=== PATIENT | female | born 1935 | race Caucasian/White ===

== ENCOUNTER 2018-07-24 17:01 | Emergency (ER) | payer MEDICARE, OTHER ==
[2018-07-24 19:36] VITALS: BP 176/61
--- NOTE | 2018-07-24 19:52 | UC ---
UC General HPI - HPI Summary HPI Summary: pt presents to the ED for evaluation of her urinary frequency. As I interview the patient with the daughter, she complains of weakness, diarrhea, chest pain, abdominal pain. she feels like she has lost weight over the past 8 days. she also complains of feeling light headed and dizzy. she just moved from [place] to [facility] last week. she also states that she is not eating very much. - History of Current Complaint Chief Complaint: UCGU Stated Complaint: PAINFUL URINATION Hx Obtained From: Patient, Family/Cash Posting Specialist Onset/Duration: Gradual Onset Onset Severity: Moderate Current Severity: Moderate Pain Intensity: 0 Associated Signs & Symptoms: Positive: Chest Pain, Dizziness, Diarrhea, Decreased Oral Intake, Headache, Weakness - Allergy/Home Medications Allergies/Adverse Reactions: Allergies Allergy/AdvReac Type Severity Reaction Status Date / Time clindamycin Allergy See Comment Verified 07/24/18 19:40 doxycycline Allergy See Comment Verified 07/24/18 19:40 Penicillins Allergy See Comment Verified 07/24/18 19:40 Contrast dyes Allergy See Comment Uncoded 07/24/18 19:40 Home Medications: Home Medications Atorvastatin* [Lipitor*] 40 mg PO 1700 07/24/18 [History Confirmed 07/24/18] Cholecalciferol TAB* [Vitamin D TAB*] 5,000 units PO DAILY 07/24/18 [History Confirmed 07/24/18] Estradiol VAGINAL TAB(NF) [Vagifem] 2 mcg VA SEE INSTRUCTIONS 07/24/18 [History Confirmed 07/24/18] HYDROcodone/ACETAMIN 5-325 MG* [Saranac 5-325 TAB*] 1 tab PO Q4H PRN 07/24/18 [ History Confirmed 07/24/18] Isosorbide Mononitrate ER TAB* [Imdur ER TAB*] 30 mg PO DAILY 07/24/18 [History Confirmed 07/24/18] L.acidoph,Paracasei, B.lactis [Probiotic] 1 each PO DAILY 07/24/18 [History Confirmed 07/24/18] LORazepam TAB(*) [Ativan 0.5 MG TAB (*)] 0.5 mg PO TID PRN 07/24/18 [History Confirmed 07/24/18] Lisinopril TAB* [Prinivil TAB*] 10 mg PO DAILY 07/24/18 [History Confirmed 07/24] Medical Marijuana 1 dose PO SEE INSTRUCTIONS 07/24/18 [History Confirmed ] Metoprolol Succinate XL TAB* [Toprol XL TAB*] 25 mg PO DAILY 07/24/18 [History Confirmed 07/24/18] Mirtazapine TAB* [Remeron TAB*] 45 mg PO BEDTIME 07/24/18 [History Confirmed 01/04] Warfarin TAB(*) [Coumadin TAB(*)] 5 mg PO SEE INSTRUCTIONS 07/24/18 [History Confirmed 07/24/18] amLODIPine TAB* [Norvasc 5 mg TAB*] 2.5 mg PO DAILY 07/24/18 [History Confirmed 07/24/18] PMH/Surg Hx/FS Hx/Imm Hx Previously Healthy: Yes - Surgical History Surgical History: Yes Surgery Procedure, Year, and Place: EYELID SURGERY - Social History Alcohol Use: Rare Substance Use Type: Marijuana Substance Use Comment - Amount & Last Used: recreationally/medicinally since 1998 Smoking Status (MU): Former Smoker Review of Systems All Other Systems Reviewed And Are Negative: No Constitutional: Positive: Fatigue Skin: Positive: Negative Eyes: Positive: Blurred Vision ENT: Positive: Negative Respiratory: Positive: Negative Cardiovascular: Positive: Chest Pain Gastrointestinal: Positive: Abdominal Pain, Diarrhea Genitourinary: Positive: Frequency Motor: Positive: Weakness Neurovascular: Positive: Negative Musculoskeletal: Positive: Negative Neurological: Positive: Headache Psychological: Positive: Negative, Anxious Physical Exam Triage Information Reviewed: Yes Appearance: Well-Nourished, Other: - pt appears fatigued Vital Signs: Initial Vital Signs Temp 97.1 F 07/24/18 19:30 Pulse 68 07/24/18 19:30 Resp 16 07/24/18 19:30 BP 176/61 07/24/18 19:30 Pulse Ox 100 07/24/18 19:30 Vital Signs Reviewed: Yes Eyes: Positive: Conjunctiva Clear ENT: Positive: Other - slightly dry mucous membranes Neck: Positive: Supple, Nontender Respiratory Exam: Normal Cardiovascular: Positive: RRR Abdomen Description: Positive: Soft, Other: - mild discomfort to lower abdomen Bowel Sounds: Positive: Present Musculoskeletal: Positive: ROM Intact Neurological: Positive: Alert Psychological Exam: Normal Skin Exam: Normal Course/Dx - Course Course Of Treatment: pt has multiple complaints. she is 82 years old and is having dizziness. she has also had decrease po intake with weight loss. I am concerned she is dehydrated with electrolyte derrangements. she will need further studies. pt sent to ED in [place]. I called the ED and gave them a courtesy call. - Diagnoses Provider Diagnosis: Weakness Discharge - Sign-Out/Discharge Documenting (check all that apply): Patient Departure All imaging exams completed and their final reports reviewed: No Studies - Discharge Plan Condition: Stable Disposition: TRANS HIGHER LVL OF CARE FAC Patient Education Materials: Weakness (ED) Referrals: Collin Hirsch MD [Primary Care Provider] - Additional Instructions: please go immediately to [place] [facility]. - Billing Disposition and Condition Condition: STABLE Disposition: Trans Higher Lvl of Care Fac
== END 2018-07-24 20:05 | disposition short-term general hospital (02) ==
LOC: UCCORT 17:01
DX: R53.1 Weakness (principal); Z88.0 Allergy status to penicillin; Z88.1 Allergy status to other antibiotic agents; Z91.041 Radiographic dye allergy status; Z87.891 Personal history of nicotine dependence
CPT/HCPCS: 99202; G0463

== ENCOUNTER 2018-08-26 11:44 | Emergency (ER) | payer MEDICARE, OTHER ==
[2018-08-26 13:39] VITALS: BP 154/50
--- NOTE | 2018-08-26 14:04 | UC ---
Eye Complaint HPI - HPI Summary HPI Summary: COMPLAINS OF BLURRY VISION AND A GRITTY SENSATION IN THE UPPER PART OF BOTH HER EYES FOR ABOUT A WEEK. SAW HER NURSE PRACTITIONER 2 OR 3 DAYS AGO AND WAS GIVEN ERYTHROMYCIN OINTMENT TO USE ONCE DAILY. STATES SHE HAS HAD NO IMPROVEMENT IN HER SYMPTOMS. DENIES ANY DRAINAGE FROM HER EYES. NO HEADACHE, FEVER, NAUSEA. DOES NOT WEAR CONTACT LENSES. REPORTS A HISTORY OF RETINAL SURGERIES IN [place], LAST PROCEDURE 2 YEARS AGO. - History of Current Complaint Chief Complaint: UCEye Stated Complaint: B/L EYE COMPLAINT Time Seen by Provider: 08/26/18 13:29 Hx Obtained From: Patient Onset/Duration: Gradual Onset, Lasting Days, Still Present Timing: Constant Severity Initially: Moderate Severity Currently: Moderate Pain Intensity: 0 Pain Scale Used: 0-10 Numeric Character: Foreign Body Sensation - GRITTY FEELING Aggravating Factor(s): Blinking Alleviating Factor(s): Nothing Associated Signs And Symptoms: Positive: Vision Impairment Bilateral. Negative : Drainage (Clear) - Allergies/Home Medications Allergies/Adverse Reactions: Allergies Allergy/AdvReac Type Severity Reaction Status Date / Time clindamycin Allergy See Comment Verified 08/26/18 13:30 doxycycline Allergy See Comment Verified 08/26/18 13:30 Penicillins Allergy See Comment Verified 08/26/18 13:30 Contrast dyes Allergy See Comment Uncoded 08/26/18 13:30 Home Medications: Home Medications Erythromycin OPTH OINT* [Erythromycin 0.5% OPTH OINT*] 1 applic BOTH EYES TID [History Confirmed 08/26/18] Escitalopram (NF) [Lexapro 5 mg (NF)] 5 mg PO DAILY 08/26/18 [History Confirmed 08/26/18] PMH/Surg Hx/FS Hx/Imm Hx - Additional Past Medical History Additional PMH: FACTOR 5 LEIDEN Cardiovascular History: Hypertension - Surgical History Surgical History: Yes Surgery Procedure, Year, and Place: EYELID SURGERY - Family History Known Family History: Positive: Non-Contributory - Social History Alcohol Use: Rare Substance Use Type: Marijuana Substance Use Comment - Amount & Last Used: recreationally/medicinally since 1998 Smoking Status (MU): Former Smoker Review of Systems All Other Systems Reviewed And Are Negative: Yes Constitutional: Positive: Negative Eyes: Positive: Blurred Vision Respiratory: Positive: Negative Cardiovascular: Positive: Negative Gastrointestinal: Positive: Negative Neurological: Positive: Negative Physical Exam Triage Information Reviewed: Yes Appearance: Well-Appearing, No Pain Distress, Well-Nourished Vital Signs: Initial Vital Signs Temp 97.7 F 08/26/18 13:34 Pulse 53 08/26/18 13:34 Resp 18 08/26/18 13:34 BP 154/50 08/26/18 13:34 Pulse Ox 100 08/26/18 13:34 Vital Signs Reviewed: Yes Eyes: Positive: Conjunctiva Inflamed - SLIGHT INJECTION BILATERAL BULBAR CONJUNCTIVA UPPER EYE, Other: - PERRL, EOMI. NO FOREIGN BODY OR EYE LESION. Negative: Discharge ENT: Positive: Hearing grossly normal Neck: Positive: Supple Respiratory: Positive: No respiratory distress, No accessory muscle use Cardiovascular: Positive: Pulses Normal Abdomen Description: Positive: Soft Musculoskeletal: Positive: No Edema Neurological: Positive: Alert Psychological: Positive: Age Appropriate Behavior Skin: Negative: Rashes Eye Complaint Course/Dx - Differential Dx/Diagnosis Provider Diagnosis: Pain of both eyes Discharge - Sign-Out/Discharge Documenting (check all that apply): Patient Departure All imaging exams completed and their final reports reviewed: No Studies - Discharge Plan Condition: Stable Disposition: HOME Patient Education Materials: Blurred Vision (ED), Eye Pain (ED) Referrals: Taylor Mariee MD [Medical Doctor] - (APPT AT 3:30PM TODAY) Additional Instructions: GIVEN YOUR COMPLAINTS OF BLURRY VISION AND A GRITTY FEELING IN BOTH YOUR EYES THAT IS NOT IMPROVING WITH ERYTHROMYCIN OINTMENT WILL SEND TO OPHTHALMOLOGY FOR FURTHER EVALUATION. YOU HAVE AN APPOINTMENT WITH DR. MARIEE AT 4 PM. PLEASE SHOW UP AT 3:30 PM TO COMPLETE PAPERWORK. - Billing Disposition and Condition Condition: STABLE Disposition: Home
== END 2018-08-26 14:16 | disposition home or self-care (01) ==
LOC: UCCORT 11:44
DX: Z88.0 Allergy status to penicillin (principal); H57.13 Ocular pain, bilateral; Z88.1 Allergy status to other antibiotic agents; Z91.041 Radiographic dye allergy status; I10 Essential (primary) hypertension; Z87.891 Personal history of nicotine dependence
CPT/HCPCS: 99212; G0463

== ENCOUNTER 2019-03-07 12:08 | Emergency (ER) | payer MEDICARE, OTHER ==
--- OUTSIDE RECORDS SUMMARY | 2019-03-07 12:25 | XMS REPORT | Continuity of Care Document ---
:1935 External Reference #:[id number] Author Name CHRISTIANO Newsome Address [address] [place] [address] Care Team Providers Name Role Phone Ayala Rodriguez MD Primary Care Physician Unavailable Payers Date Identification Numbers Payment Provider Subscriber Effective: Policy Number: [id number] Medicare-National Maida Higuera 2000 [employer] PayID: [id number] [place] [address] Policy Number: [id number] [place] [facility] [employer] Higuera PayID: [id number] [place] Han Silverman [facility] [place] [address] Problems Active Problems Provider Date Allergic rhinitis Keri Sidhu M.D. 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 Home Environment Mattress is 1 year old Home Environment Mattress is not encased in an allergy proof case Home Environment Rubber Mattress Home Environment Pillows are not encased in an allergy proof case Home Environment Pillows contain feathers Home Environment Does not use a dehumidifier Home Environment There are draperies in the home Home Environment The home is not darnell Home Environment The floors are carpeted Home Environment Uses forced air heating Home Environment [place] Home Environment Water Source: [place] Smoke-Free Home is smoke-free Pets 1 cat Pets Animals sleep in bedroom Occupation Retired ETOH Use Occasionally consumes alcohol Tobacco Use Start: Unknown End: Patient is a former smoker Unknown Recreational Drug Use Denies Drug Use Allergies, Adverse Reactions, Alerts Active Allergies Reaction Severity Comments Date Clindamycin Hives 02/11/2019 Penicillin Hives 02/11/2019 Tetracycline Hives 02/11/2019 Adhesives (Tape) Rash 02/11/2019 Medications Active Medications SIG Qnty Indications Ordering Date Provider Levocetirizine 1 by mouth every 90tabs [facility] 02/11/2019 Dihydrochloride day Placido Sidhu 5mg Tablets Mometasone Furoate 2 sprays into 51gm [facility] 02/11/2019 each nostril once Placido Sidhu 50mcg/Act Suspension a day Propranolol HCL ER 1 by mouth every [place], 60mg day MD Ayala Caps ER 24HR Mirtazapine 1 tab by mouth at [place], 45mg Tablets bedtime MD Ayala Atorvastatin Calcium once daily [place], 40mg MD Ayala Tablets Warfarin Sodium 1 by mouth every Unknown 5mg Tablets day Estrace [address] Collin Hirsch, 0.1mg/GM Cream vaginally every 2 M.D. mths Metronidazole twice a day after [place], 500mg Tablets meals MD Ayala Isosorbide Mononitrate 1 every day [place], ER MD Ayala 30mg Tablets ER 24HR Ciprofloxacin HCL one tab by mouth 20tabs Unknown 500mg twice a day Tablets Lorazepam as needed Unknown 0.5mg Tablets Amlodipine Besylate 1 by mouth every Unknown 2.5mg day Tablets Probiotic Acidophilus 1/day Unknown Capsules Fluoxetine HCL 1 by mouth every Unknown 20mg day Capsules Vitamin D3 1 by mouth every Unknown 5000Unit day Capsules Immunizations CPT Code Status Date Vaccine Lot # 21143 Given Unknown Influenza Vaccine Vital Signs Date Vital Result Comment 03/04/2019 2:02pm Height 61 inches 5'1" Weight 124.00 lb Weight 56.246 kg Respiratory Rate 20 /min Heart Rate 58 /min O2 % BldC Oximetry 97 % BP Systolic 131 mmHg BP Diastolic 61 mmHg BMI (Body Mass Index) 23.4 kg/m2 02/11/2019 1:28pm Height 61 inches 5'1" Weight 124.00 lb Weight 56.246 kg Respiratory Rate 20 /min Heart Rate 59 /min O2 % BldC Oximetry 97 % BP Systolic 143 mmHg On BP Meds BP Diastolic 67 mmHg On BP Meds BMI (Body Mass Index) 23.4 kg/m2 Procedures Date Code Description Status 02/11/2019 00395 Skin Test Scratch # Of Units ____ Completed Encounters Type Date Location Provider Dx Diagnosis Office Visit 03/04/2019 [facility] Sarai Branch J30.9 Allergic rhinitis, 2:00p 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 unspecified Plan of Treatment 03/04/2019 - Sarai Branch, MORA-CJ30.9 Allergic rhinitis, [id number] Other seasonal allergic [id number] Other allergic rhinitisRecommendations: Continue all medications as prescribed.Refrain from wearing perfumes/scented colognes while visitingour office. Continue the levocetirizine 1 daily Continue the mometasone 2 sprays daily Discussed the three ways in which allergies are managed: (1) avoidance measures; (2) medications; (3) allergy immunotherapy. Discussed environmental controls. -Dust mite control barriers are recommended for mattress and pillows. Make sure the product specifies a pore size rating of 2-5 microns. Bigger and unspecified pore sizes may not be effective. -Wash all bedding in hot water once weekly. -Keep bedroom humidity below 50%. Dust mites thrive well in high humidity. She will followup in 4 months
--- OUTSIDE RECORDS SUMMARY | 2019-03-07 12:25 | XMS REPORT | Continuity of Care Document ---
:1935 External Reference #:[id number] Author Name Keri Sidhu M.D. Address [address] [place] [address] Care Team Providers Name Role Phone Keri Sidhu M.D. 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 Home Environment Has central air Home Environment [...] [place] Home Environment Water Source: [facility] Smoke-Free Home is smoke-free Pets 1 cat [...] Provider Levocetirizine 1 by mouth every 90tabs [facility] 02/11/2019 Dihydrochloride day Placido Sidhu 5mg Tablets Mometasone Furoate 2 sprays into 51gm [facility] 02/11/2019 each nostril once Placido Sidhu 50mcg/Act Suspension a day Propranolol HCL ER 1 by mouth every [place], 60mg day MD Ayala Caps ER 24HR Mirtazapine 1 tab by mouth at [place], 45mg Tablets bedtime MD Ayala Atorvastatin Calcium once daily [place], 40mg MD Ayala Tablets Warfarin Sodium 1 by mouth every Unknown 5mg Tablets day Estrace [address] Collin Hirsch, 0.1mg/GM Cream vaginally every 2 M.D. mths Metronidazole twice a day after [place], 500mg Tablets meals MD Ayala Isosorbide Mononitrate 1 every day [place], ER MD Ayala 30mg Tablets ER 24HR [...] CPT Code Status Date Vaccine Lot # [id number] Given Unknown Influenza Vaccine Vital Signs Date Vital Result Comment 02/11/2019 1:28pm Height 61 inches 5'1" Weight 124.00 lb Weight 56.246 kg Respiratory Rate 20 /min Heart Rate 59 /min O2 % BldC Oximetry 97 % BP Systolic 143 mmHg On BP Meds BP Diastolic 67 mmHg On BP Meds BMI (Body Mass Index) 23.4 kg/m2 Procedures Date Code Description Status 02/11/2019 97654 Skin Test Scratch # Of Units ____ Completed Encounters Type Date Location Provider Dx Diagnosis Office Visit 02/11/2019 [facility] Keri Renee J30.9 Allergic rhinitis, 1:20p Placido Sidhu unspecified Plan of Treatment Future Appointment(s):03/04/2019 2:00 pm - CHRISTIANO Newsome at [facility]02/11/2019 - Keri Sidhu M.D.J30.9 Allergic rhinitis, unspecifiedFollow up:2-3 weeks, *DISCUSSION: After the evaluation is completed, the results and treatment choices will beexplained.Recommendations:Prick Skin Test - Seasonal and Environmental Environmental controls reviewed continue Levocetirizine 5 mg once daily use Mometasone 2 sprays to each nostril once daily consider ENT evaluation if symptoms worsen/do not improve - pt expressed understanding
--- OUTSIDE RECORDS SUMMARY | 2019-03-07 12:25 | XMS REPORT | Continuity of Care Document ---
:1935 External Reference #:[id number] Author Name Keri Sidhu M.D. Address [address] [place] [address] Care Team Providers Name Role Phone Ayala Rodriguez MD Primary Care Physician Unavailable Payers Date Identification Numbers Payment Provider Subscriber Effective: Policy Number: [id number] Medicare-National Maida Higuera 2000 [employer] PayID: [id number] [address] Policy Number: [id number] [place] [facility] [employer] Higuera PayID: [id number] [place] Han Silverman [facility] [place] [address] Problems Active Problems Provider Date Allergic rhinitis Keri Sidhu M.D. 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 Home Environment Has central air Home Environment [place] Home Environment Water Source: [facility] Smoke-Free Home is smoke-free Pets 1 cat [...] Provider Levocetirizine 1 by mouth every 90tabs [facility] 02/11/2019 Dihydrochloride day Placido Sidhu 5mg Tablets Mometasone Furoate 2 sprays into 51gm [facility] 02/11/2019 each nostril once Placido Sidhu 50mcg/Act Suspension a day Propranolol HCL ER 1 by mouth every [place], 60mg day MD Ayala Caps ER 24HR Mirtazapine 1 tab by mouth at [place], 45mg Tablets bedtime MD Ayala Atorvastatin Calcium once daily [place], 40mg MD Ayala Tablets Warfarin Sodium 1 by mouth every Unknown 5mg Tablets day Estrace [address] Collin Hirsch, 0.1mg/GM Cream vaginally every 2 M.D. 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 unspecified Plan of Treatment 03/04/2019 - MORA Newsome-CJ30.9 Allergic rhinitis, lpfdrojgurcR70.2 Other seasonal allergic hsripgnvM83.89 Other allergic rhinitisRecommendations: Continue all medications as [...]
[2019-03-07 12:42] VITALS: BP 146/52
--- NOTE | 2019-03-07 13:36 | ED ---
Lower Extremity - HPI Summary HPI Summary: 83 yr old female with the complaint of right 5th toe pain. Onset of pain a couple of weeks ago when she stubbed the toe. The toe continues to be uncomfortable. It is also a little red and swollen. She has no other complaints or pain. She states the toe was feeling better and then she bumped it again on the shower this morning and now it hurts again. She broke this same toe in the past. - History of Current Complaint Chief Complaint: UCLowerExtremity Stated Complaint: RT FOOT INJ Time Seen by Provider: 03/07/19 13:10 Pain Intensity: 5 - Allergies/Home Medications Allergies/Adverse Reactions: Allergies Allergy/AdvReac Type Severity Reaction Status Date / Time clindamycin Allergy See Comment Verified 08/26/18 13:30 doxycycline Allergy See Comment Verified 08/26/18 13:30 Penicillins Allergy See Comment Verified 08/26/18 13:30 Contrast dyes Allergy See Comment Uncoded 08/26/18 13:30 Home Medications: Home Medications Fluoxetine HCl [Prozac] 10 mg PO DAILY 03/07/19 [History Confirmed 03/07/19] PMH/Surg Hx/FS Hx/Imm Hx Cardiovascular History: Reports: Hx Hypertension - Surgical History Surgery Procedure, Year, and Place: EYELID SURGERY Infectious Disease History: No Infectious Disease History: Reports: Hx Clostridium Difficile Denies: Traveled Outside the [place] in Last 30 Days - Family History Known Family History: Positive: Non-Contributory - Social History Alcohol Use: Occasionally Substance Use Type: Reports: Marijuana Substance Use Comment - Amount & Last Used: recreationally/medicinally since 1998 Smoking Status (MU): Former Smoker Review of Systems Constitutional: Negative Positive: Other - right foot 5th toe pain, swelling. All Other Systems Reviewed And Are Negative: Yes Physical Exam Triage Information Reviewed: Yes Vital Signs On Initial Exam: Initial Vitals Temp Pulse Resp BP Pulse Ox 98.0 F 63 18 146/52 97 03/07/19 12:38 03/07/19 12:38 03/07/19 12:38 03/07/19 12:38 03/07/19 12:38 Vital Signs Reviewed: Yes Appearance: Positive: Well-Appearing, No Pain Distress Skin: Positive: Warm, Skin Color Reflects Adequate Perfusion Head/Face: Positive: Normal Head/Face Inspection Eyes: Positive: EOMI ENT: Positive: Normal ENT inspection Respiratory/Lung Sounds: Positive: Clear to Auscultation Cardiovascular: Positive: Pulses are Symmetrical in both Upper and Lower Extremities Abdomen Description: Negative: Distended Musculoskeletal: Positive: Strength/ROM Intact, Other - mild STS right 5th toe with erythema. Also tenderness. Neurological: Positive: Sensory/Motor Intact, Alert, Oriented to Person Place, Time, CN Intact II-III, Normal Gait, Speech Normal Psychiatric: Positive: Normal Diagnostics - Vital Signs Vital Signs Temp Pulse Resp BP Pulse Ox 03/07/19 12:38 98.0 F 63 18 146/52 97 - Laboratory Lab Statement: Any lab studies that have been ordered have been reviewed, and results considered in the medical decision making process. - Radiology right foot Radiology Interpretation Completed By: Radiologist - nad Lower Extremity Course/Dx - Course Course Of Treatment: 83 yr old female with contusion to the right toe. Neg xray per rad. No obvious cellulitis. - Diagnoses Provider Diagnoses: Contusion of fifth toe, right Discharge - Sign-Out/Discharge Documenting (check all that apply): Patient Departure All imaging exams completed and their final reports reviewed: Yes - Discharge Plan Condition: Good Disposition: HOME Patient Education Materials: Contusion in Adults (ED), Hypertension (ED) Referrals: No Primary Care Phys,NOPCP [Primary Care Provider] - [facility] [place] [facility] [place]] - 2 Days - Billing Disposition and Condition Condition: GOOD Disposition: Home
== END 2019-03-07 14:15 | disposition home or self-care (01) ==
LOC: UCCORT 12:08
DX: S90.121A Contusion of right lesser toe(s) without damage to nail, initial encounter (principal); W22.8XXA Striking against or struck by other objects, initial encounter; Y92.9 Unspecified place or not applicable; I10 Essential (primary) hypertension; Z87.891 Personal history of nicotine dependence
CPT/HCPCS: 99211; G0463